=== PATIENT | female | born 1960 | race Caucasian/White ===

== ENCOUNTER 2019-12-30 11:23 | Outpatient (REF) | payer OTHER, SELFPAY ==
--- NOTE | 2019-12-30 11:32 | US_ITS ---
EXAMINATION: US RETROPERITONEAL COMPLETE (RENAL) US BLADDER CLINICAL INFORMATION: Frequency. COMPARISON: Renal ultrasound with bladder 11/15/2016. Ultrasound abdomen 04/15/2014. TECHNIQUE: Real-time imaging of the kidneys and bladder. FINDINGS: RIGHT KIDNEY: 9.6 x 5.2 x 3.8 cm (SAG x AP x TRV). The kidney is normal in size, contour, and echogenicity. Renal cortical thickness is normal. No calculi or focal parenchymal lesions. No hydronephrosis. LEFT KIDNEY: 10.7 x 5.3 x 5.6 cm (SAG x AP x TRV). The kidney is normal in size, contour, and echogenicity. Renal cortical thickness is normal. No calculi or focal parenchymal lesions. No hydronephrosis. BLADDER: Well distended. Bilateral ureteral jets are demonstrated. Prevoid bladder volume is 163 mL. Post void bladder volume is 57.4 mL. Slightly trabeculated bladder wall is noted. IMPRESSION: Unremarkable renal ultrasound. Unremarkable bladder ultrasound except for slightly trabeculated bladder wall.
== END 2019-12-30 11:24 | disposition home or self-care (01) ==
LOC: HO.US 11:23
PROVIDERS: Visit Provider Nurse Practitioner Family
DX: N31.9 Neuromuscular dysfunction of bladder, unspecified (principal); R35.0 Frequency of micturition; Z87.440 Personal history of urinary (tract) infections
CPT/HCPCS: 76775; 76857

== ENCOUNTER 2020-06-04 12:15 | Outpatient (REF) | payer OTHER, SELFPAY ==
--- NOTE | ~2020-06-04 | XR_ITS ---
EXAMINATION: XR SHOULDER, RIGHT CLINICAL INFORMATION: Pain right shoulder. COMPARISON: None TECHNIQUE: Right shoulder is imaged in 4 views. FINDINGS: There is no fracture, dislocation or destructive process. Bony mineralization appears normal. The acromioclavicular alignment is normal. The glenohumeral joint is unremarkable. There are no visible rotator cuff calcifications. Fine chain laura are seen overlying right lung apex. There is no pneumothorax or pleural reaction or airspace opacity upper right chest. XR/XR shoulder RT min 2V IMPRESSION: Normal right shoulder.
== END 2020-06-04 12:16 | disposition home or self-care (01) ==
LOC: HO.XRAY 12:15
PROVIDERS: PCP Internal Medicine; Visit Provider Internal Medicine
DX: M25.511 Pain in right shoulder (principal)
CPT/HCPCS: 73030

== ENCOUNTER 2021-05-06 12:43 | Outpatient (REF) | payer OTHER, SELFPAY ==
--- NOTE | ~2021-05-06 | US_ITS ---
EXAMINATION: US VENOUS ULTRASOUND WITH DOPPLER LOWER EXTREMITY, LEFT CLINICAL INFORMATION: Left leg swelling COMPARISON: None TECHNIQUE: Ultrasound of the deep veins is performed from the hip to the calf with compression sonography and color and pulse Doppler assessment. Spectral analysis with color-flow imaging is performed. FINDINGS: There is normal venous compression and respiratory variation and augmented flow. The visualized common femoral vein, superficial femoral vein, profunda femoral vein, popliteal vein, and the trifurcation region shows no evidence of deep venous thrombosis. There is no significant popliteal fossa cyst. No popliteal artery aneurysm. US/US venous duplex LE LT IMPRESSION: No acute DVT demonstrated in the left lower extremity.
== END 2021-05-06 12:44 | disposition home or self-care (01) ==
LOC: HO.US 12:43
PROVIDERS: PCP Internal Medicine; Visit Provider Internal Medicine
DX: R60.0 Localized edema (principal)
CPT/HCPCS: 93971

== ENCOUNTER 2022-02-22 10:16 | Outpatient (REF) | payer OTHER, SELFPAY ==
--- NOTE | ~2022-02-22 | MR_ITS ---
EXAMINATION: MR cervical spine wo/w con, MR head/brain wo/w con CLINICAL INFORMATION: Multiple sclerosis COMPARISON: MRI of the brain with and without contrast 07/06/2017, MRI cervical spine 08/22/2013 TECHNIQUE: Multiplanar multisequence MR imaging of the brain and cervical spine was obtained without and following the administration of 6 mL Gadavist intravenous contrast. FINDINGS: BRAIN PARENCHYMA New T2 hyperintense Lesions: None. Enhancing Lesions: No abnormal parenchymal enhancement. There is new leptomeningeal enhancement versus vascular engorgement along the right middle frontal gyrus (series 19 image 20, series 20 image 25) without signal abnormality of the adjacent brain parenchyma. Reduced Diffusion: None. Overall Disease [place]: >20 lesions. No change in multiple periventricular, juxtacortical, and infratentorial white matter lesions compatible with known demyelinating disease. T1 Hypointensities ([place]): >5. Parenchymal Atrophy: Mild, stable Callosal Atrophy: Mild, stable SPINAL CORD New T2 Hyperintense Lesions: None. Pre-existing Lesions: Within the limitations of motion, stable patchy signal abnormality in the upper to mid cervical cord with most discrete lesion involving the right dorsal cord at C2-C3 Enhancing Lesions: None. Volume: Stable mild diffuse cortical volume loss. SPINE Bones: Vertebral body heights and alignment are normal. Cervical straightening. No significant spondylolisthesis. Heterogeneous marrow signal without suspicious focal osseous lesion. Spinal Canal: No spinal canal or foraminal stenosis. SOFT TISSUES: Normal. OTHER: None. MR/MR cervical spine wo/w con IMPRESSION: 1. Compared to 07/06/2017, stable moderate to severe burden of demyelinating disease involving the supratentorial brain with mild involvement of the infratentorial brain. No reduced diffusion or enhancing lesions to suggest active demyelination. 2. Compared to the prior examination in 2018, there is new leptomeningeal enhancement versus vascular engorgement along the right middle frontal gyrus of uncertain etiology. Consider further evaluation with CSF sampling to evaluate for an underlying infectious or inflammatory leptomeningeal process and/or short-term interval imaging follow-up. 3. Within the limitations of motion, stable burden of demyelinating disease in the cervical cord. No abnormal intramedullary enhancement.
== END 2022-02-22 10:17 | disposition home or self-care (01) ==
LOC: HO.MRI 10:16
PROVIDERS: Visit Provider Psychiatry & Neurology Neurology
DX: G35 Multiple sclerosis (principal)
CPT/HCPCS: 70553; 72156; A9585

== ENCOUNTER 2022-07-11 13:03 | Outpatient (REF) | payer OTHER, SELFPAY | END 2022-07-11 13:04 | disposition home or self-care (01) | LOC: HO.MDS 13:03 | PROVIDERS: Visit Provider Psychiatry & Neurology Neurology | DX: H46.11 Retrobulbar neuritis, right eye (principal) | CPT/HCPCS: 96365; J2930 ==

== ENCOUNTER 2022-07-12 12:41 | Outpatient (REF) | payer OTHER, SELFPAY | END 2022-07-12 12:42 | disposition home or self-care (01) | LOC: HO.MDS 12:41 | PROVIDERS: Visit Provider Psychiatry & Neurology Neurology | DX: H46.11 Retrobulbar neuritis, right eye (principal) | CPT/HCPCS: 96365; J2930 ==

== ENCOUNTER 2022-07-13 13:46 | Outpatient (REF) | payer OTHER, SELFPAY | END 2022-07-13 13:47 | disposition home or self-care (01) | LOC: HO.MDS 13:46 | PROVIDERS: Visit Provider Psychiatry & Neurology Neurology | DX: H46.11 Retrobulbar neuritis, right eye (principal) | CPT/HCPCS: 96365; J2930 ==

== ENCOUNTER 2023-01-31 13:37 | Outpatient (REF) | payer OTHER, SELFPAY | END 2023-01-31 13:38 | disposition home or self-care (01) | LOC: HO.MDS 13:37 | PROVIDERS: Visit Provider Psychiatry & Neurology Neurology | DX: H46.11 Retrobulbar neuritis, right eye (principal) | CPT/HCPCS: 96365; J2930 ==

== ENCOUNTER → 2023-12-15 12:31 | Outpatient (BNV) | payer BC, SELFPAY | PROVIDERS: PCP Internal Medicine; Visit Provider Radiology Diagnostic Radiology | DX: G35 Multiple sclerosis (principal); R53.1 Weakness | CPT/HCPCS: 70551; 72141 ==

== ENCOUNTER 2023-12-15 12:37 | Outpatient (REF) | payer BC, SELFPAY ==
--- NOTE | ~2023-12-15 | MR_ITS ---
EXAMINATION: MR BRAIN WITHOUT CONTRAST CLINICAL INFORMATION: MS, follow-up ; left-sided weakness 6 months. COMPARISON: 06/16/2017, 07/06/2017, and dating back to 2006. TECHNIQUE: MRI of the brain was obtained using routine sequences without contrast. IV access could not be established for contrast administration. Examination was performed on a 1.5 Kelley Siemens magnet using standard demyelination protocol. Study submitted for interpretation 02/14/2024. FINDINGS: There is no diffusion restriction. There is no intracranial hemorrhage, acute infarction, mass effect, or edema. Ventricles, sulci, and cisterns are normal in size and configuration for patient age. No shift of midline. No abnormal hemosiderin deposition is identified. There are a numerous scattered punctate and minimally confluent foci of white matter T2 hyperintensity predominantly in the subcortical, periventricular, and pericallosal white matter, in keeping with known multiple sclerosis. When compared with 07/06/2017, the number and morphology of lesions has remained stable. No definite new lesions seen. There is callosal atrophy, moderate. There is hyperintensity at the callosal septal interface, fairly specific for multiple sclerosis. None of lesions demonstrate T1 hypointensity. Aside from a small lesion in the right cerebral peduncle extending into the right anterior superior jose alejandro, and a small lesion in the left posterior medulla, no additional infratentorial lesions seen. These are stable. Midline structures are otherwise appear normally formed. The pituitary gland appears normal. Posterior fossa structures appear normal. Cerebellar tonsils are appropriately located. Major flow voids are preserved within the skull base. The globes and orbital contents demonstrate no abnormalities. Paranasal sinuses are clear bilaterally. Nasal septum is midline without spur. The mastoids and tympanic cavities are normally aerated. Extracranial soft tissues demonstrate no abnormalities. No suspicious bone marrow changes are evident. Degenerative changes in the right greater than left TM joints. Atlantoaxial joint is normally aligned with mild arthritic change. MR/MR head/brain wo con IMPRESSION: 1. Contrast could not be administered because IV access could not be obtained. 2. No acute intracranial hemorrhage, acute infarction, mass effect, or edema. 3. Numerous stable supratentorial and infratentorial white matter lesions, in keeping with known multiple sclerosis. No definite new lesions, diffusion restricting, or T1 hypointense lesions seen. Findings appear stable from 02/22/2022. See above. 4. Additional ancillary findings as discussed in the body of the report. Electronically signed by: Saulo Partida MD 02/14/2024 10:14 AM BRIAN SERRA
--- NOTE | ~2023-12-15 | MR_ITS ---
EXAMINATION: MR CERVICAL SPINE WITHOUT CONTRAST CLINICAL INFORMATION: MS, follow-up ; left-sided weakness 6 months. COMPARISON: 02/22/2022, 08/22/2013, and dating back to 2006. TECHNIQUE: MRI of the cervical spine was obtained using routine sequences without contrast. IV access could not be established for contrast administration. Examination was performed on a 1.5 Kelley Siemens magnet using standard demyelination protocol. FINDINGS: CORONAL ALIGNMENT: -Normal. SAGITTAL ALIGNMENT: - Minimal straightening of the normal lordosis. -No subluxations. Alignment is anatomic. CRANIOCERVICAL JUNCTION/C1-2 ARTICULATIONS: -Intact and aligned. VERTEBRAL BODIES/BONE MARROW: -Normal. No compression deformities, bone marrow edema, or abnormal infiltrating bone marrow signal. -No endplate changes evident. DISCS: -Grossly normal in height and signal throughout. -No significant disc herniation or central canal narrowing. CERVICAL CORD: Numerous T2 hyperintense lesions are present as follows: -Subtle lesion in the left posterior medulla extending to the obex centrally (series 8, images 1 and 2). -Elongated right lateral column and posterior column lesion spanning the upper lateral masses of C2 to the inferior endplate of C5. -A subtle left lateral column lesion seen at the C2-3 disc space, and spanning the C4 vertebral body level, to the superior endplate of the C5. -There is increased right lateral column and left anterior column increased T2 signal spanning the C7-T1 disc level to the superior endplate of T2. Mild thinning of the cord at these levels. -There appears to be a right lateral column lesion on the sagittal T2 spanning the T5 vertebral level, incompletely imaged. -Findings all appear unchanged without definite new lesions seen. PARAVERTEBRAL SOFT TISSUES: -Normal. Thyroid is obscured by a saturation band. AXIAL DISC SPACE IMAGING: C2-C3: Tiny central disc protrusion. No significant mass effect. Mild left greater than right hypertrophic facet changes. No central canal or neural foraminal narrowing. No change. C3-C4: Subtle disc bulge without significant mass effect. Mild bilateral left greater than right hypertrophic facet changes. No significant central canal or neural foraminal narrowing. No change. C4-C5: Mild bilateral facet and uncinate spurring. Tiny central disc protrusion. No significant mass effect, or central canal narrowing. Mild left neural foraminal narrowing. No change. C5-C6: Moderate right greater than left hypertrophic facet changes. No disc pathology. No central canal or neural foraminal narrowing. No change. C6-C7: No central canal or neural foraminal narrowing. Normal facets. C7-T1: No central canal or neural foraminal narrowing. Normal facets. MR/MR cervical spine wo con IMPRESSION: 1. Contrast could not be administered because IV access could not be obtained. 2. Stable findings of demyelination throughout the cervical cord, with numerous lesions present, without definite new lesions seen. Mild cord atrophy and thinning spanning the C7-T1 disc level to the superior endplate of T2. See above for details. 3. No significant spondylotic findings. No central canal or neural foraminal narrowing of significance. 4. Stable posterior fossa demyelinating lesions. 5. Ancillary findings as discussed. Electronically signed by: Saulo Partida MD 02/14/2024 10:38 AM BRIAN SERRA
== END 2023-12-15 12:38 | disposition home or self-care (01) ==
LOC: HO.MRI 12:37
PROVIDERS: PCP Internal Medicine; Visit Provider Psychiatry & Neurology Neurology
DX: G35 Multiple sclerosis (principal)
CPT/HCPCS: 70551; 72141

== ENCOUNTER 2024-06-16 15:43 | Outpatient (REF) | payer BC, SELFPAY ==
--- NOTE | ~2024-06-16 | MR_ITS ---
EXAMINATION: MR BRAIN WITHOUT THEN WITH IV CONTRAST HISTORY: VERTIGO R/O ACOUSTIC NEUROMA TECHNIQUE: Sagittal T1, and axial T1, FLAIR, T2, gradient echo, and diffusion weighted MR images of the brain were obtained. In addition, high resolution T2-weighted images were obtained through the internal auditory canals. Subsequently, axial and coronal T1-weighted images were obtained through the internal auditory canals before and after the administration of intravenous gadolinium. 6 mL Gadavist was administered. COMPARISON: Comparison is made with the prior examination dated 12/15/2023. FINDINGS: There is diffuse prominence of the ventricular system and cortical sulci, consistent with atrophy. Extensive periventricular and subcortical white matter hyperintensities are again noted on the FLAIR and T2-weighted images, compatible with the patient's known history of demyelinating disease. No definite new lesions are identified. There is no mass effect or midline shift. No intra or extra-axial fluid collections are identified. There are no foci of restricted diffusion. The bilateral 7th and 8th nerve complexes are unremarkable in appearance, without evidence of abnormal nodularity or contrast enhancement. No abnormal contrast enhancement is seen in the remainder of the brain. Normal vascular flow voids are noted in the basilar and carotid arteries. The visualized paranasal sinuses are clear. MR/MR head/brain wo/w con IMPRESSION: 1. No evidence of an internal auditory canal or CP angle mass. 2. Extensive periventricular and subcortical white matter hyperintensities, compatible with the patient's known history of demyelinating disease. No definite new lesion is seen. Electronically signed by: Eliu De La Paz MD 06/17/2024 08:16 AM EDT
--- OUTSIDE RECORDS SUMMARY | 2024-06-16 15:46 | XMS_ITS | Encounter Summary ---
Author Organization [facility] Address [address] [place] [address] Care Team Providers Care Stock House Worker Name Role Phone Physician, Pcp Unknown Primary Care Provider Janet vailable Encounter Details Date Type Department Care Team (Late st Contact Info) Description 05/24/2024 Lab Requisition [facility] Lab [address] [facility] [place] [address] Jesi Godfrey NP [address] [facility] [address] [place] [address] Frequency of micturition Social History Tobacco Use Types Packs/Day Years Used Date Smoking Tobacco: Never Assessed Comments Unknown Sex and Gender Information Value Date Recorded Sex Assigned at Not on file Legal Sex Female 6:09 AM EST Gender Identity Not on file Sexual Orientation Not on file documented as of this encounter Plan of Treatment Not on file documented as of this encounter Procedures Procedure Name Priority Date/Time Associated Diagnosis Comments BACTERIAL IDENTIFICATION AND SUSCEPTIBILITY, AEROBIC Routine 05/23/2024 12:00 AM EDT Frequency of micturition documented in this encounter Results * Bacterial identification and susceptibility, aerobic (05/23/2024 12:00 AM EDT) Culture, Bacterial ID and Sensitivity Multiple bacterial morphotypes present consistent with either contamination or urogenital chris. Suggest repeat specimen, if clinically indicated. 05/24/2024 2:06 PM EDT [facility] Other Urine specimen from urethra / Unknown 05/23/2024 05/24/2024 1:07 PM EDT us Jesi Godfrey NP LAB MICROBIOLOGY - GENERA L ORDERABLES Final Result [facility] ([facility] H[facility] LAB [address] [place] [address], documented in this encounter Visit Diagnoses Diagnosis Frequency of micturition Urinary frequency documented in this encounter Care Teams Stock House Worker Relationship Specialty Start Date End Date Physician, Pcp Unknown PCP - General 05/24/24 documented as of this encounter
--- OUTSIDE RECORDS SUMMARY | 2024-06-16 15:46 | XMS_ITS | Clinical Summary ---
Author Organization [address] [facility] Address [address] [place] [address] Phone Care Team Providers Care Occupational Therapist Aide Name Role Phone Physician, Pcp Unknown Primary Care Provider Janet vailable Encounters Date Type Department Care Team Description 05/24/2024 Lab Requisition [facility] - Main Lab [address] [facility] [place] [address] Jesi Godfrey NP Frequency of micturition from Last 3 Months Social History Tobacco Use Types Packs/Day Years Used Date Smoking Tobacco: Never Assessed Comments Unknown Sex and Gender Information Value Date Recorded Sex Assigned at Not on file Legal Sex Female 6:09 AM EST Gender Identity Not on file Sexual Orientation Not on file Plan of Treatment Health Maintenance Due Date Last Done Comments Breast Cancer Screening 1962 DTaP,Tdap,and Td Vaccines (1 - Tdap) 1981 Cervical Cancer Screening: P ap Smear 07/03/1983 Pneumococcal Vaccine: 50+ Ye ars (1 of 1 - PCV) 2012 Zoster Vaccines (1 of 2) 2012 Colorectal Cancer Screening: Colonoscopy 02/13/2022 Depression Screening 02/13/2022 HIV Screening 02/13/2022 Hepatitis C Screening 02/13/2022 Social Influencers of Health Screening 02/13/2022 COVID-19 Vaccine ( - 2023-2 5 season) 2023 Influenza Vaccine (#1) 2023 RSV Immunization Adult Patie nts (1 - 1-dose 75+ series) 2037 HIB Vaccines Aged Out No longer eligi ble based on patient's age to complete this topic HPV Vaccines Aged Out No longer eligi ble based on patient's age to complete this topic Hepatitis A Vaccines Aged Out No long er eligible based on patient's age to complete this topic Hepatitis B Vaccines Aged Out No long er eligible based on patient's age to complete this topic IPV Vaccines Aged Out No longer eligi ble based on patient's age to complete this topic MMR Vaccines Aged Out No longer eligi ble based on patient's age to complete this topic Meningococcal ACWY Vaccine Aged Out N o longer eligible based on patient's age to complete this topic Meningococcal B Vacine Aged Out No lo nger eligible based on patient's age to complete this topic Pneumococcal Vaccine: Pediat rics (0 to 5 Years) and At-Risk Patients (6 to 64 Years) Aged Out No longer eligible b ased on patient's age to complete this topic RSV Immunization Patients Un mis 20 months Aged Out No longer eligible b ased on patient's age to complete this topic Varicella Vaccines Aged Out No longer eligible based on patient's age to complete this topic Procedures Procedure Name Priority Date/Time Associated Diagnosis Comments BACTERIAL IDENTIFICATION AND SUSCEPTIBILITY, AEROBIC Routine 05/23/2024 12:00 AM EDT Frequency of micturition from Last 3 Months Results * Bacterial identification and susceptibility, aerobic (05/23/2024 12:00 AM EDT) Culture, Bacterial ID and Sensitivity Multiple bacterial morphotypes present consistent with either contamination or urogenital chris. Suggest repeat specimen, if clinically indicated. 05/24/2024 2:[address] [facility] Other Urine specimen from urethra / Unknown 05/23/2024 05/24/2024 1:07 PM EDT us Jesi Godfrey NP LAB MICROBIOLOGY - GENERA L ORDERABLES Final Result [facility] [address] [place] [address], [place] [phone] from Last 3 Months Insurance [facility] Care Teams Occupational Therapist Aide Relationship Specialty Start Date End Date Physician, Pcp Unknown PCP - General 05/24/24
[2024-06-16] MEDS: gadobutroL 7.5 ML VIAL IVPUSH (17:48)
== END 2024-06-16 15:44 | disposition home or self-care (01) ==
LOC: HO.MRI 15:43
PROVIDERS: PCP Internal Medicine; Visit Provider Internal Medicine
DX: R42 Dizziness and giddiness (principal)
CPT/HCPCS: 70553; A9585

== ENCOUNTER → 2024-06-16 17:20 | Outpatient (BNV) | payer BC, SELFPAY | PROVIDERS: PCP Internal Medicine; Visit Provider Radiology Diagnostic Radiology | DX: R90.82 White matter disease, unspecified (principal) | CPT/HCPCS: 70553 ==

== ENCOUNTER 2024-08-09 10:09 | Outpatient (REF) | payer BC, SELFPAY ==
--- OUTSIDE RECORDS SUMMARY | 2024-08-09 10:51 | XMS_ITS | Clinical Summary ---
Author Organization [address] [facility] Address [address] [place] [address] Phone Care Team Providers Care Athletic Team Physician Name Role Phone Physician, Pcp Unknown Primary Care Provider Janet vailable Encounters Date Type Department Care Team Description 05/24/2024 Lab Requisition [facility] - Main Lab [address] [facility] [place] [address] Jesi Godfrey NP Frequency of [...] - 2023-2 5 season) 2023 Influenza Vaccine (Season Ended) 2024 RSV Immunization Adult Patie nts (1 - [...] age to complete this topic Meningococcal B Vaccine Aged Out No l onger eligible based on patient's age to complete [...] if clinically indicated. 05/24/2024 2:06 PM EDT [facility] Other Urine specimen from urethra / Unknown 05/23/2024 05/24/2024 1:07 PM EDT us Jesi Godfrey NP LAB MICROBIOLOGY - GENERA L ORDERABLES Final Result [facility] [address] [place] [address], [place] [phone] from Last 3 Months Insurance [facility] Care Teams Athletic Team Physician Relationship Specialty Start Date End Date Physician, Pcp Unknown PCP - General 05/24/24
[2024-08-09 11:22] LABS: Basophils Percent Auto 0.4 % (0-2); Eosinophils Absolute Auto 0.1 X10*3/uL (0.0-0.4); Hematocrit 39.5 % (37.0-47.0); Hemoglobin 13.1 g/dl (12.0-16.0); Imm Gran Abs Auto 0.01 X10*3/uL (0.00-0.03); Imm Gran Pct Auto 0.2 % (0.0-0.4); Lymphocytes Absolute Auto 1.6 X10*3/uL (1.2-4.9); Mean Corpuscular HGB Conc 33.2 g/dl (31.0-35.0); Mean Corpuscular Volume 90.4 fL (80.0-98.0); Monocytes Absolute Auto 0.3 X10*3/uL (0.1-1.2); Monocytes Percent Auto 6.5 % (2-11); Neutrophils Absolute Auto 2.5 x10*3/uL (2.0-8.3); Neutrophils Percent Auto 55.9 % (45-73); Red Blood Count 4.37 X10*6/uL (4.20-5.50)
[2024-08-09 11:44] LABS: White Blood Count 4.5 X10*3/uL (4.8-10.8)
[2024-08-09 12:41] LABS: Alanine Aminotransferase 18 U/L (0-31); Alkaline Phosphatase 48 U/L (39-117); Anion Gap 14 (12-20); Aspartate Amino Transferase 25 U/L (5-31); Bilirubin Total 0.3 mg/dL (0.0-1.0); Blood Urea Nitrogen 10 mg/dL (9-16); Calcium 9.6 mg/dL (8.4-10.2); Carbon Dioxide 23 mmol/L (22-29); Chloride 110 mmol/L (96-108); Cholesterol 210 mg/dL (<200); Estimated Glomerular Filt Rate > 60; Glucose Random 99 mg/dL (60-115); HDL Cholesterol 46 mg/dL (>40); LDL Cholesterol Calculated 121 mg/dL (<100); Magnesium 1.8 mg/dL (1.6-2.6); Potassium 4.3 mmol/L (3.3-5.1); Sodium 143 mmol/L (135-145); TSH reflex Free T4 1.27 uIU/mL (0.32-4.0); Total Protein 6.6 g/dL (6.5-8.0); Triglycerides 215 mg/dL (<150); Vitamin D 25-OH Total 21.2 ng/mL (>30)
== END 2024-08-09 10:10 | disposition home or self-care (01) ==
LOC: HO.LAB 10:09
PROVIDERS: PCP Internal Medicine; Visit Provider Internal Medicine
DX: Z00.00 Encounter for general adult medical examination without abnormal findings (principal); Z13.6 Encounter for screening for cardiovascular disorders
CPT/HCPCS: 36415; 80053; 80061; 82306; 83735; 84443; 85025; 86765